=== PATIENT | male | born 1995 | race African-American/Black ===

== ENCOUNTER 2017-12-02 17:31 | Emergency (ER) | payer OTHER ==
[~2017-12-02] VITALS: Ht 177.8 cm; Wt 75.1 kg
[2017-12-02 17:51] VITALS: TEMP 36.9; Ht 177.8 cm; Wt 75.1 kg
[2017-12-02] MEDS ORDERED: ACETAMINOPHEN 500 MG TAB PO STA (18:39)
[2017-12-02] MEDS ORDERED: GUAIFENESIN/DEXTROM SYRUP 100MG/10MG 5ML UDC PO ONE (18:45)
--- NOTE | 2017-12-02 18:52 | EMERGENCY ROOM VISIT NOTE ---
History Report prepared by Allyson: Francis Clark Under the Supervision of: Minna QuintanaO. First contact with patient: 18:23 Chief Complaint: FLU LIKE SX Stated Complaint: SORE THROAT, TIGHT CHEST WHEN BREATHING History of Present Illness The patient is a 22 year old male who presents to the Emergency Room with complaints of intermittent, worsening flu-like symptoms beginning five days ago. The patient states his first episode consisted of a stuffy nose, sorethroat , and dry cough that resolved on their own. He reports he experienced another episode yesterday where he developed a fever of 100 degrees, warmth to his upper eyelids, nausea, and chest tightness when he sleeps, in addition to his stuffy nose, sorethroat, and dry cough. The patient notes he received a flu shot in the fall, but he has been around people that have been sick. He denies vomiting, diarrhea, and trying any medications for his symptoms. Up-to-date on immunizations. Source of History: patient Onset: five days ago Position: other (global) Quality: other (flu-like sx) Timing: intermittent, worsening Associated Symptoms: + fevers (100 degrees), + sorethroat, + cough (dry), + chest pain (tightness when he sleeps), + nausea, No vomiting, No diarrhea Note: Associated symptoms: warmth to his eyelids, stuffy nose Review of Systems See HPI for pertinent positives & negatives. A total of 10 systems reviewed and were otherwise negative. Past Medical & Surgical Medical Problems: (1) ACUTE APPENDICITIS NOS (2) Asthma (3) ASTHMA, UNSPECIFIED, W (ACUTE) EXACERBATION (4) Bronchitis (5) FAM HX-CHR RESP COND NEC (6) FAM HX-DIABETES MELLITUS (7) FAM HX-OTH KIDNEY DISEASES (8) FAMILY HISTORY OF OTHER CARDIOVASCULAR DISEASES (9) PNA (pneumonia) (10) Stomach problems Family History Diabetes mellitus FH: lupus Hypertension Social History Smoking Status: Never Smoker Alcohol Use: none Drug Use: none Marital Status: single Housing Status: lives with family Occupation Status: student Current/Historical Medications No Active Prescriptions or Reported Meds Allergies Coded Allergies: No Known Allergies (Unverified , NONE, 12/04/17) Physical Exam Vital Signs Date Time Temp Pulse Resp B/P (MAP) Pulse Ox O2 Delivery O2 Flow Rate FiO2 12/02/17 20:09 89 16 135/78 100 12/02/17 17:51 36.9 78 20 123/68 98 Room Air Physical Exam GENERAL: alert, well appearing, well nourished, no distress, non-toxic EYE EXAM: normal conjunctiva, PERRL and EOM's grossly intact OROPHARYNX: no exudate, no erythema, lips, buccal mucosa, and tongue normal and mucous membranes are moist, no sinus tenderness to percussion NECK: supple, no nuchal rigidity, no adenopathy, non-tender LUNGS: Clear to auscultation. Normal chest wall mechanics, no wheezes/rhonchi/ rales HEART: no murmurs, S1 normal and S2 normal ABDOMEN: abdomen soft, non-tender, normo-active bowel sounds, no masses, no rebound or guarding. BACK: Back is symmetrical on inspection and there is no deformity, no midline tenderness, no CVA tenderness. SKIN: no rashes and no bruising UPPER EXTREMITIES: upper extremities are grossly normal. LOWER EXTREMITIES: No pitting edema. NEURO EXAM: Normal sensorium, cranial nerves II-XII intact, normal speech, no weakness of arms, no weakness of legs. Medical Decision & Procedures ER Provider Diagnostic Interpretation: Radiology results have been interpreted by the radiologist and reviewed by me. CHEST 2 VIEWS ROUTINE HISTORY: 22 years-old Male cough, chest pain acute cough with atypical chest pain COMPARISON: Acute abdominal series radiographs 11/05/2011 TECHNIQUE: PA and lateral views of the chest FINDINGS: Cardiomediastinal and hilar silhouettes are within normal limits. There is no pneumothorax, pleural effusion, focal airspace consolidation or overt pulmonary edema. The bones of the chest appear grossly intact. IMPRESSION: No acute process. The above report was generated using voice recognition software. It may contain grammatical, syntax or spelling errors. Electronically signed by: Ray Quintero M.D. 12/02/2017 7:15 PM Dictated Date/Time: 12/02/2017 7:14 PM Laboratory Results Test 12/02/17 18:50 Influenza Type A Antigen Neg for Influ A (NEG) Influenza Type B Antigen Neg for Influ B (NEG) Laboratory results per my review. Medications Administered Medications (Trade) Dose Ordered Sig/Jayda Route Start Time Stop Time Status Last Admin Dose Admin Acetaminophen (Tylenol Tab) 1,000 mg NOW STAT PO 12/02/17 18:39 12/02/17 18:40 DC 12/02/17 19:02 1,000 MG Guaifenesin/ Dextromethorphan (Robitussin-Dm Syrup) 5 ml NOW ONCE PO 12/02/17 18:45 12/02/17 18:46 DC 12/02/17 19:02 5 ML ECG Indication: chest pain Rate (beats per minute): 69 Rhythm: sinus rhythm Findings: no acute ischemic change, no ectopy, other (Normal axis, normal intervals. Poor quality tracing. No global findings to suggest pericarditis) Change: EKG: Patient's electrocardiogram per my interpretation. ED Course 1816: The patient was evaluated in room B05. A complete history and physical exam was performed. 1838: Ordered Acetaminophen 1000 mg PO 1844: Ordered Robitussin-Dm Syrup 5ml PO 1958: Upon reevaluation, the patient is feeling better. I discussed the findings and the treatment plan with the patient. He verbalizes agreement and understanding. The patient was discharged home. Medical Decision Differential diagnosis: Etiologies such as viral syndrome, otitis, pharyngitis, pneumonia, influenza, meningitis, urinary tract infection, sepsis, bacteremia, as well as others were entertained. Patient well-appearing here despite complaints and likely viral syndrome. Discussed with patient diet and hydration, treatment with rpon-xek-gembvyx medications, monitoring of fever, symptoms to watch and return for, he verbalized understanding was agreeable with plan. Patient tolerating by mouth had stable vital signs throughout. Doubt occult pneumonia, pericarditis/ myocarditis, meningitis/encephalitis, deep space infection, acute sinusitis, strep pharyngitis, bacteremia/sepsis. Doubt additional occult GI or pathology. Medication Reconcilliation Current Medication List: was personally reviewed by me Blood Pressure Screening Patient's blood pressure: Normal blood pressure Blood pressure disposition: Did not require urgent referral Impression Primary Impression: Influenza-like symptoms Scribe Attestation The scribe's documentation has been prepared under my direction and personally reviewed by me in its entirety. I confirm that the note above accurately reflects all work, treatment, procedures, and medical decision making performed by me. Departure Information Dispostion Home / Self-Care Prescriptions No Active Prescriptions or Reported Meds Referrals No Doctor, Assigned (PCP) Forms HOME CARE DOCUMENTATION FORM, IMPORTANT VISIT INFORMATION Patient Instructions ED Viral Syndrome, My [facility] Additional Instructions Please drink plenty of fluids to stay well hydrated. You may use tylenol and ibuprofen for fevers and body aches, you may use other cold remedies that are over the counter. If you have any worsening symptoms including blood in your sputum, diarrhea, vomiting, feel short of breath, or you have any other new or concerning symptoms, please return to the emergency room.
--- NOTE | 2017-12-02 19:16 | DIAGNOSTIC IMAGING REPORT ---
CHEST 2 VIEWS ROUTINE HISTORY: 22 years-old Male cough, chest pain acute cough with atypical chest pain COMPARISON: Acute abdominal series radiographs 11/05/2011 TECHNIQUE: PA and lateral views of the chest FINDINGS: Cardiomediastinal and hilar silhouettes are within normal limits. There is no pneumothorax, pleural effusion, focal airspace consolidation or overt pulmonary edema. The bones of the chest appear grossly intact. IMPRESSION: No acute process. The above report was generated using voice recognition software. It may contain grammatical, syntax or spelling errors. Electronically signed by: Ray Quintero M.D. 12/02/2017 7:15 PM Dictated Date/Time: 12/02/2017 7:14 PM
[2017-12-02 19:32] LABS: INFLUENZA B ANTIGEN Neg for Influ B (NEG)
[2017-12-02 20:09] VITALS: BP 135/78; PULSE 89; O2SAT 100
== END 2017-12-02 20:10 | disposition home or self-care (01) ==
LOC: C.EDB 17:33
DX: R07.0 Pain in throat (principal); R05 Cough; R50.9 Fever, unspecified; R11.0 Nausea; R07.89 Other chest pain; R09.81 Nasal congestion; J45.909 Unspecified asthma, uncomplicated; Z83.3 Family history of diabetes mellitus; Z84.1 Family history of disorders of kidney and ureter; Z82.49 Family history of ischemic heart disease and other diseases of the circulatory system; Z83.49 Family history of other endocrine, nutritional and metabolic diseases

== ENCOUNTER 2017-12-03 23:53 | Emergency (ER) | payer OTHER ==
[~2017-12-03] VITALS: Ht 177.8 cm; Wt 75.6 kg
[2017-12-04 00:03] VITALS: Ht 177.8 cm; Wt 75.6 kg
[2017-12-04] MEDS ORDERED: SODIUM CHLORIDE 0.9% 1000ML 2,000 ML IV STA (00:35)
[2017-12-04] MEDS ORDERED: ONDANSETRON INJ 2 MG/ML 2 ML VIAL IV STA (00:35)
[2017-12-04] MEDS ORDERED: KETOROLAC TROMETHAMINE 30 MG/ML VIAL IV STA (00:35)
[2017-12-04 01:30] LABS: HEMATOCRIT 40.4 % (42-52); HEMOGLOBIN 13.9 g/dL (14.0-18.0); MEAN CELL VOLUME 84.5 fL (80-100); MEAN CORPUSCULAR HEMOGLOBIN 29.1 pg (25-34); MEAN CORPUSCULAR HGB CONC 34.4 g/dl (32-36); MEAN PLATELET VOLUME 8.8 fL (7.4-10.4); PLATELET COUNT 201 K/uL (130-400); RED CELL DISTRIBUTION WIDTH CV 13.8 % (11.5-14.5); RED CELL DISTRIBUTION WIDTH SD 42.8 fL (36.4-46.3); WHITE BLOOD COUNT 4.62 K/uL (4.8-10.8)
[2017-12-04 01:48] LABS: ALBUMIN 3.6 gm/dl (3.4-5.0); CALCIUM 8.5 mg/dl (8.5-10.1); CREATININE 1.07 mg/dl (0.60-1.40); POTASSIUM 3.5 mmol/L (3.5-5.1)
[2017-12-04 01:50] LABS: TOTAL PROTEIN 6.9 gm/dl (6.4-8.2)
--- NOTE | 2017-12-04 02:10 | EMERGENCY ROOM VISIT NOTE ---
History Report prepared by Allyson: Jennifer Cruz Under the Supervision of: Dr. Parvin Olsen M.D. First contact with patient: 00:15 Chief Complaint: FLU LIKE SX Stated Complaint: FLU LIKE SYMPTOMS History of Present Illness The patient is a 22 year old male who presents to the Emergency Room with complaints of worsening flu-like symptoms starting today. The patient states that he was here yesterday and was told to come back if he started having diarrhea or was unable to keep water down. He states that he had both of these symptoms. The patient complains of a sore throat, fever, diarrhea, and cough. He states that he took Tylenol yesterday, but not today. The patient denies shortness of breath, urinary symptoms, and hematochezia. He currently rates his pain as a 3/10 in severity. Source of History: patient Onset: today Position: other (global) Symptom Intensity: 3/10 Quality: other (flu-like) Timing: worsening Associated Symptoms: + fevers, + sorethroat, + cough, + diarrhea, No SOB, No hematochezia, No urinary symptoms Review of Systems See HPI for pertinent positives & negatives. A total of 10 systems reviewed and were otherwise negative. Past Medical & Surgical Medical Problems: (1) ACUTE APPENDICITIS NOS (2) Asthma (3) ASTHMA, UNSPECIFIED, W (ACUTE) EXACERBATION (4) Bronchitis (5) FAM HX-CHR RESP COND NEC (6) FAM HX-DIABETES MELLITUS (7) FAM HX-OTH KIDNEY DISEASES (8) FAMILY HISTORY OF OTHER CARDIOVASCULAR DISEASES (9) PNA (pneumonia) (10) Stomach problems Family History Diabetes mellitus FH: lupus Hypertension Social History Smoking Status: Never Smoker Alcohol Use: none Drug Use: none Marital Status: single Housing Status: lives with family Occupation Status: student Current/Historical Medications No Active Prescriptions or Reported Meds Allergies Coded Allergies: No Known Allergies (Unverified , NONE, 12/04/17) Physical Exam Vital Signs Date Time Temp Pulse Resp B/P (MAP) Pulse Ox O2 Delivery O2 Flow Rate FiO2 12/04/17 02:56 37.1 68 16 127/77 100 12/04/17 01:28 56 18 104/80 97 Room Air 12/04/17 00:03 36.8 70 18 124/72 98 Room Air Physical Exam Vital signs reviewed. General: Well-appearing, in no significant distress. HEENT: No scleral icterus, PERRLA, neck supple. Atraumatic. No meningeal signs. Cardiovascular: Regular rate and rhythm, no extra sounds. Pulmonary: Clear to auscultation bilaterally, normal work of breathing. Abdomen: Soft, nontender, nondistended, positive bowel sounds. Musculoskeletal: Atraumatic, no peripheral edema. Neurologic: Patient awake alert and oriented x 3 Skin: Warm, dry, no rash Medical Decision & Procedures Laboratory Results 12/04/17 01:20 Red Blood Count 4.78, Mean Corpuscular Volume 84.5, Mean Corpuscular Hemoglobin 29.1, Mean Corpuscular Hemoglobin Concent 34.4, Mean Platelet Volume 8.8, Neutrophils (%) (Auto) 29.0, Lymphocytes (%) (Auto) 54.5, Monocytes (%) (Auto) 7.4, Eosinophils (%) (Auto) 8.7, Basophils (%) (Auto) 0.4, Neutrophils # (Auto) 1.34, Lymphocytes # (Auto) 2.52, Monocytes # (Auto) 0.34, Eosinophils # (Auto) 0.40, Basophils # (Auto) 0.02 12/04/17 01:20 Test 12/04/17 01:20 White Blood Count 4.62 K/uL (4.8-10.8) Red Blood Count 4.78 M/uL (4.7-6.1) Hemoglobin 13.9 g/dL (14.0-18.0) Hematocrit 40.4 % (42-52) Mean Corpuscular Volume 84.5 fL (80-100) Mean Corpuscular Hemoglobin 29.1 pg (25-34) Mean Corpuscular Hemoglobin Concent 34.4 g/dl (32-36) Platelet Count 201 K/uL (130-400) Mean Platelet Volume 8.8 fL (7.4-10.4) Neutrophils (%) (Auto) 29.0 % Lymphocytes (%) (Auto) 54.5 % Monocytes (%) (Auto) 7.4 % Eosinophils (%) (Auto) 8.7 % Basophils (%) (Auto) 0.4 % Neutrophils # (Auto) 1.34 K/uL (1.4-6.5) Lymphocytes # (Auto) 2.52 K/uL (1.2-3.4) Monocytes # (Auto) 0.34 K/uL (0.11-0.59) Eosinophils # (Auto) 0.40 K/uL (0-0.5) Basophils # (Auto) 0.02 K/uL (0-0.2) RDW Standard Deviation 42.8 fL (36.4-46.3) RDW Coefficient of Variation 13.8 % (11.5-14.5) Immature Granulocyte % (Auto) 0.0 % Immature Granulocyte # (Auto) 0.00 K/uL (0.00-0.02) Anion Gap 8.0 mmol/L (3-11) Est Creatinine Clear Calc Drug Dose 113.7 ml/min Estimated GFR () 115.2 Estimated GFR (Non- 99.4 BUN/Creatinine Ratio 12.2 (10-20) Calcium Level 8.5 mg/dl (8.5-10.1) Total Bilirubin 0.8 mg/dl (0.2-1) Direct Bilirubin 0.2 mg/dl (0-0.2) Aspartate Amino Transf (AST/SGOT) 11 U/L (15-37) Alanine Aminotransferase (ALT/SGPT) 21 U/L (12-78) Alkaline Phosphatase 80 U/L (45-117) Total Protein 6.9 gm/dl (6.4-8.2) Albumin 3.6 gm/dl (3.4-5.0) Laboratory results per my review. Medications Administered Medications (Trade) Dose Ordered Sig/Jayda Route Start Time Stop Time Status Last Admin Dose Admin Sodium Chloride 2,000 ml @ 999 mls/hr Q2H1M STAT IV 12/04/17 00:35 12/04/17 02:35 DC 12/04/17 01:18 999 MLS/HR Ondansetron HCl (Zofran Inj) 4 mg NOW STAT IV 12/04/17 00:35 12/04/17 00:38 DC 12/04/17 01:18 4 MG Ketorolac Tromethamine (Toradol Inj) 30 mg NOW STAT IV 12/04/17 00:35 12/04/17 00:38 DC 12/04/17 01:18 30 MG Ondansetron HCl (ZOFRAN ODT 4MG Home Pack) 1 homepack UD ONCE PO 12/04/17 03:00 12/04/17 03:01 DC 12/04/17 02:56 1 HOMEPACK ED Course 0034: Past medical records reviewed. The patient was evaluated in room A11B. A complete history and physical examination was performed. 0035: Ordered Toradol Inj 30 mg IV, Zofran Inj 4 mg IV, NSS 2000 ml @ 999 mls/ hr IV. 0247: Upon reevaluation, the patient appeared to have improvement of his symptoms. I discussed findings with him. He verbalized agreement of the treatment plan. The patient was discharged home. 0300: Ordered Ondansetron HCl 1 homepack PO. Medical Decision Differential diagnosis: Etiologies such as gastroenteritis, food borne illness, infections, appendicitis , diverticulitis, inflammatory bowel disease, obstruction, GI bleed, biliary pathology, as well as others were entertained. This patient was evaluated and appeared to be in no significant distress. IV access was obtained and laboratory work was drawn. Patient was placed on the residential monitor and found to be in a normal sinus rhythm. He was hydrated with normal saline solution. He was given IV Zofran and Toradol for his discomfort. Patient's laboratory work is found to be fairly unrevealing. The patient had significant resolution of symptoms and had no further vomiting. He was discharged with Zofran home pack. He was given instructions regarding increase fluids and advancing his diet slowly as tolerated. The patient will follow-up with his PCP for reevaluation return to the ER for worsening of symptoms or any medical concerns. Medication Reconcilliation Current Medication List: was personally reviewed by me Blood Pressure Screening Patient's blood pressure: Normal blood pressure Blood pressure disposition: Did not require urgent referral Impression Primary Impression: Vomiting and diarrhea Scribe Attestation The scribe's documentation has been prepared under my direction and personally reviewed by me in its entirety. I confirm that the note above accurately reflects all work, treatment, procedures, and medical decision making performed by me. Departure Information Dispostion Home / Self-Care Prescriptions No Active Prescriptions or Reported Meds Referrals No Doctor, Assigned (PCP) Forms HOME CARE DOCUMENTATION FORM, IMPORTANT VISIT INFORMATION Patient Instructions My [facility] Additional Instructions Diagnosis: Vomiting and diarrhea Drink plenty of clear fluids. Zofran 4 mg ODT every 6 hours as needed for nausea. Follow up with your doctor this week for reevaluation. Return to the ED for worsening of symptoms or any medical concerns.
[2017-12-04 02:25] LABS: BASO % 0.4 %; BASO ABS # 0.02 K/uL (0-0.2); EOS % 8.7 %; LYMPH % 54.5 %; LYMPH ABS # 2.52 K/uL (1.2-3.4); MONO % 7.4 %; MONO ABS # 0.34 K/uL (0.11-0.59); NEUT ABS # 1.34 K/uL (1.4-6.5)
[2017-12-04 02:56] VITALS: BP 127/77; PULSE 68; TEMP 37.1; O2SAT 100
[2017-12-04] MEDS ORDERED: ONDANSETRON HOME PACK 4MG OD TAB PO ONE (03:00)
== END 2017-12-04 02:56 | disposition home or self-care (01) ==
LOC: C.EDB 23:54 → C.EDA 12-04 02:56
DX: R11.10 Vomiting, unspecified (principal); R19.7 Diarrhea, unspecified; J02.9 Acute pharyngitis, unspecified; R50.9 Fever, unspecified; R05 Cough; J45.909 Unspecified asthma, uncomplicated; Z87.01 Personal history of pneumonia (recurrent); Z87.19 Personal history of other diseases of the digestive system; Z82.49 Family history of ischemic heart disease and other diseases of the circulatory system; Z82.69 Family history of other diseases of the musculoskeletal system and connective tissue; Z83.3 Family history of diabetes mellitus